=== PATIENT | female | born 1985 | race Caucasian/White ===

== ENCOUNTER 2021-12-03 17:56 | Emergency (ER) | payer BC, OTHER ==
[~2021-12-03] VITALS: Ht 162.6 cm; Wt 77.3 kg
[2021-12-03] MEDS ORDERED: ADDERALL 10 MG10 MG PO (18:11)
[2021-12-03 19:02] VITALS: BP 158/68
== END 2021-12-03 19:05 | disposition home or self-care (01) ==
LOC: ED 17:56
DX: S93.402A Sprain of unspecified ligament of left ankle, initial encounter (principal); F90.9 Attention-deficit hyperactivity disorder, unspecified type; Z79.899 Other long term (current) drug therapy; W10.9XXA Fall (on) (from) unspecified stairs and steps, initial encounter

== ENCOUNTER → 2022-02-23 | Outpatient (CLI) | payer BC, OTHER ==
[~2022-02-23] MED LIST: ADDERALL 10 MG10 MG PO
== END ==
LOC: RAD 10:40
DX: R10.2 Pelvic and perineal pain (principal); Z97.5 Presence of (intrauterine) contraceptive device

== ENCOUNTER → 2022-02-24 | Outpatient (CLI) | payer BC, OTHER ==
[2022-02-24 09:22] LABS: BASO # 0.14 K/mm3 (0.02-0.10); EOS # 0.94 K/mm3 (0.04-0.40); EOS % 11.4 % (1.0-5.0); HEMATOCRIT 46.6 % (37.0-47.0); HEMOGLOBIN 15.3 g/dL (12.5-16.0); LYMPH# 2.28 K/mm3 (1.50-4.00); MEAN CELL VOLUME 92 fl (78-100); MEAN CORPUSCULAR HEMOGLOBIN 30 pg (27-31); MEAN CORPUSCULAR HGB CONC 33 g/dL (33-37); MEAN PLATELET VOLUME 8.7 fl (7.4-10.4); MONO # 0.81 K/mm3 (0.20-0.80); NEU # 4.09 K/mm3 (1.40-6.50); PLATELET COUNT 350 K/mm3 (130-400); RED BLOOD COUNT 5.09 M/mm3 (4.10-5.30); RED CELL DISTRIBUTION WIDTH 12.7 % (11.5-14.5); WHITE BLOOD COUNT 8.3 K/mm3 (4.8-10.8)
[2022-02-24 09:34] LABS: ALBUMIN 3.7 g/dL (3.5-5.0)
[2022-02-24 09:35] LABS: CALCIUM 8.9 mg/dL (8.3-10.5)
[2022-02-24 09:37] LABS: TOTAL PROTEIN 6.6 g/dL (6.4-8.3)
[2022-02-24 09:38] LABS: TOTAL BILIRUBIN 0.2 mg/dL (0.2-1.2)
== END ==
LOC: LAB 09:10
PROVIDERS: Family Medicine
DX: R10.2 Pelvic and perineal pain (principal)